=== PATIENT | female | born 1985 | race Asian ===

== ENCOUNTER 2021-12-18 10:46 | Emergency (ER) | payer SELFPAY ==
[2021-12-18 11:04] VITALS: BP 140/81; PULSE 107; RESP 16; TEMP 36.6; O2SAT 99
--- NOTE | 2021-12-18 11:27 | ED.MALEGU ---
HPI - Male Genitourinary General Chief complaint: Urogenital-Male Stated complaint: STD Exposure Time Seen by Provider: 12/18/21 11:10 Source: patient, RN notes reviewed and old records reviewed Mode of arrival: ambulatory Limitations: no limitations History of Present Illness HPI Narrative: 36-year-old male who presents to [facility] care with complaints of 2-day history of white penile drainage and some burning with urination. Patient denies any testicular pain, no fever, chills or sweats, denies any pain in his back. Patient reports that he has had previous STD diagnosis with similar symptoms. MD Complaint: penile discharge and possible STD exposure Onset (ago): day(s) (2) Associated symptoms: Reports discharge and dysuria Related Data Home Medications Medication Instructions Recorded Confirmed albuterol sulfate 90 mcg/actuation 2 puff inhalation QID PRN sob 12/18/21 12/18/21 aerosol inhaler Allergies Allergy/AdvReac Type Severity Reaction Status Date / Time No Known Allergies Allergy Verified 12/18/21 11:18 Review of Systems Review of Systems: CONSTITUTIONAL: Denies fever, chills, or sweats. CARDIOVASCULAR: Denies chest pain, palpitations, or edema. RESPIRATORY: Denies cough or dyspnea. GASTROINTESTINAL: Denies abdominal pain, nausea, vomiting, or diarrhea. GENITOURINARY: Reports dysuria, no frequency, urgency. Denies flank pain or hematuria.reports white thick penile discharge SKIN: Denies rash or itching. MUSCULOSKELETAL: Denies back pain or myalgia. Denies CVA tenderness NEUROLOGIC: Denies headache All systems reviewed & are unremarkable except as noted in HPI and below PMFSH Past Medical History Medical History (Updated 12/19/21 @ 08:37 by Awilda Vieira NP) STD (sexually transmitted disease) Social History Social History (Updated 12/19/21 @ 08:38 by Awilda Vieira NP) Smoking status: Never smoker Alcohol intake: unknown Substance use: unknown Gender identity (if verbalized by the patient): Male Comments At time of signature, agree with nursing past medical, surgical, social and family history. There is no relevant family history pertinent to the presenting complaint Exam Narrative: GENERAL: Well-appearing, well-nourished, and in no acute distress. HEAD: Normocephalic, atraumatic. NECK: Supple. CHEST: Clear to auscultation. No respiratory distress. SaO2 99% on room air HEART: Regular rate and rhythm. No murmur heard. Normal peripheral pulses. ABDOMEN: Soft, nontender, nondistended, normal active bowel sounds. No CVA tenderness, no testicular pain, positive for white penile discharge. EXTREMITIES: Normal range of motion. No edema. SKIN: Warm, dry, no rash. NEURO: No focal deficits. Alert and oriented x3. Course Course Emergency Course: Patient is aware of diagnosis, understands and agrees to treatment plan.? Anticipatory guidance given.? Patient agrees to follow-up as directed and is aware of reasons to seek care at the emergency department. Portions of this record may have been created with voice recognition software Level of Care: Express Care Visit Vital Signs Vital signs: Vital Signs Temperature 36.6 C 12/18/21 11:04 Pulse Rate 107 H 12/18/21 11:04 Respiratory Rate 16 12/18/21 11:04 Blood Pressure 140/81 12/18/21 11:04 Pulse Oximetry 99 12/18/21 11:04 Oxygen Delivery Room Air 12/18/21 11:04 Temperature 36.6 C 12/18/21 11:04 Pulse Rate 107 H 12/18/21 11:04 Respiratory Rate 16 12/18/21 11:04 Blood Pressure 140/81 12/18/21 11:04 Pulse Oximetry 99 12/18/21 11:04 Oxygen Delivery Room Air 12/18/21 11:04 MDM - Male Genitourinary MDM Narrative Medical decision making narrative: We will treat empirically for GC and chlamydia and trichomonas with ceftriaxone IM doxycycline and Flagyl orally, GC culture sent abstinence and safe sex precautions were provided and the patient demonstrated understanding Patient received Rocephin 5
[2021-12-18] MEDS: cefTRIAXone 500 MG, LIDOCAINE HCL 1% LOCAL INJ 1 ML IM (11:47)
== END 2021-12-18 12:10 | disposition home or self-care (01) ==
PROVIDERS: Emergency Provider Registered Nurse
DX: R36.9 Urethral discharge, unspecified (principal)
CPT/HCPCS: 87491; 87591; 87661; 96372; 99214; G0463; J0696

== ENCOUNTER 2024-10-11 18:55 | Emergency (ER) | payer BC, SELFPAY ==
--- OUTSIDE RECORDS SUMMARY | 2024-10-11 18:57 | XMS_ITS | Clinical Summary ---
Author Organization [facility] Address [address] [facility] [place] [address] Phone Care Team Providers Care Esthetician/Skin Therapist Name Role Phone Henrique Renae APRN, SOFTWARE ENGINEERING MANAGER Unavailable Ra Bailey MD Primary Care Provider [phone] Allergies No known active allergies Medications No known medications Social History Tobacco Use Types Packs/Day Years Used Date Smoking Tobacco: Never Smokeless Tobacco: Never Alcohol Use Standard Drinks/Week Comments Not Currently 0 (1 standard drink = 0.6 oz pur e alcohol) Occasionally Sex and Gender Information Value Date Recorded Sex Assigned at Not on file Legal Sex Male 11:46 PM CDT Gender Identity Not on file Sexual Orientation Not on file Last Filed Vital Signs Vital Sign Reading Time Taken Comments Blood Pressure 136/65 2022 1:04 PM PRINCIPAL PROGRAMMER Pulse 70 2022 1:04 PM PRINCIPAL PROGRAMMER Temperature 36.8 C (98.2 F) 2022 1:04 PM PRINCIPAL PROGRAMMER Respiratory Rate 16 2022 3:10 PM PRINCIPAL PROGRAMMER Oxygen Saturation 97% 2022 1:04 PM PRINCIPAL PROGRAMMER Inhaled Oxygen Concentration - - Weight 78.9 kg (174 lb) 2022 1:04 PM PRINCIPAL PROGRAMMER Height 172.7 cm (5' 8) 2022 1:04 PM PRINCIPAL PROGRAMMER Body Mass Index 26.46 2022 1:04 PM PRINCIPAL PROGRAMMER Plan of Treatment Health Maintenance Due Date Last Done Comments Hepatitis C Virus (HCV) Screening 1984 TdaP Immunization 1984 Human Papillomavirus (HPV) Immunization (1 - Male 3-dose series) 05/22/1999 Hepatitis B Immunization (1 of 3 - 19+ 3-dose series) 05/22/2003 SARS-COV-2 Immunization (3 - 2023- season) 2023 05/12/2021, 04/21/2021 Influenza Immunization (#1) 2024 Respiratory Syncytial Virus (RSV) Immunization (Adult) (1 - 1-dose 75+ series) 05/22/2059 Meningococcal Immunization (ACWY) Aged Out No longer eligible b ased on patient's age to complete this topic Pneumococcal Immunization Combined Aged Out No longer eligible b ased on patient's age to complete this topic Rotavirus Immunization Aged Out No lo nger eligible based on patient's age to complete this topic Insurance Care Teams Esthetician/Skin Therapist Relationship Specialty Start Date End Date Ra Bailey MD [address] [place] [address] PCP - General Primary Care 01/13/24 Henrique Renae, EQUIPMENT SERVICES ASSOCIATE, SOFTWARE ENGINEERING MANAGER [address] [place] [address] Nurse Practitioner Advanced Practice Nurse 01/13/24
--- OUTSIDE RECORDS SUMMARY | 2024-10-11 18:57 | XMS_ITS | Clinical Summary ---
Author Organization [address] Address [address] [place] [id number] Care Team Providers Care Civil Structural Engineer Name Role Phone Ra Bailey MD Primary Care Provider + Elijah Hall MD Unavailable [phone] Allergies No known active allergies Medications albuterol HFA (PROVENTIL HFA,VENTOLIN HFA,PROAIR HFA) 90 mcg/actuation inhalerIndicatio ns:Asthma, unspecified asthma severity, unspecified whether complicated, unspecified whether persistent Inhale 2 puffs every 6 (six) hours as needed for wheezing for up to 7 days 1 each 3 Active Active Problems No known active problems Medical History Medical History Date Comments Asthma Family History Medical History Relation Name Comments Lung cancer Father Cancer, lung; Relation Name Status Comments Father Social History Tobacco Use Types Packs/Day Years Used Date Smoking Tobacco: Never Tobacco Cessation:Counseling Given: Not Answered Sex and Gender Information Value Date Recorded Sex Assigned at Not on file Legal Sex Male 3:43 AM SODIUM CHLORITE OPERATOR Gender Identity Not on file Sexual Orientation Not on file Obstetrics History Last Filed Vital Signs Vital Sign Reading Time Taken Comments Blood Pressure 122/68 01/30/2023 6:57 PM SODIUM CHLORITE OPERATOR Pulse 84 01/30/2023 6:57 PM SODIUM CHLORITE OPERATOR Temperature 36.8 C (98.3 F) 01/30/2023 6:57 PM SODIUM CHLORITE OPERATOR Respiratory Rate 16 01/30/2023 6:57 PM SODIUM CHLORITE OPERATOR Oxygen Saturation 98% 01/30/2023 6:57 PM SODIUM CHLORITE OPERATOR Inhaled Oxygen Concentration - - Weight 73.5 kg (162 lb) 01/30/2023 6:57 PM SODIUM CHLORITE OPERATOR Height 172.7 cm (5' 8) 01/30/2023 6:57 PM SODIUM CHLORITE OPERATOR Body Mass Index 24.63 01/30/2023 6:57 PM SODIUM CHLORITE OPERATOR Plan of Treatment Health Maintenance Due Date Last Done Comments Depression Screening 1984 Hepatitis C Screening 1984 Prostate Cancer Screening-PSA 1984 DTaP/Tdap/Td Vaccine (1 - Tdap) 05/22/1995 Varicella Vaccines (1 of 2 - 13+ 2-dose series) 1997 Hepatitis B Screening 2002 Regular Well Visit/Exam 18-64 2002 HPV Vaccines (1 - 3-dose SCD M series) 05/22/2011 Covid-19 Vaccine (3 - 2023-2 5 season) 2023 05/12/2021, 04/21/2021 Influenza Vaccine (#1) 2024 Pneumococcal vaccine <65 Aged Out No longer eligible based on patient's age to complete this topic Insurance [id number] [place] [address] Care Teams Civil Structural Engineer Relationship Specialty Start Date End Date Ra Bailey MD [address] [facility] [place] [address] PCP - General Internal Medicine 01/30/23 Elijah Hall MD [address] [place] [address] [facility] [address] [place] [address] 01/30/23
--- OUTSIDE RECORDS SUMMARY | 2024-10-11 18:57 | XMS_ITS | Referral Summary ---
Author Organization [address] Address [address] [place] [id number] Care Team Providers Care Vinegar Maker Name Role Phone Ra Bailey MD Primary Care Provider + Elijah Hall MD Unavailable [phone] Allergies No known active allergies Medications albuterol HFA (PROVENTIL HFA,VENTOLIN HFA,PROAIR HFA) 90 mcg/actuation inhalerIndicatio ns:Asthma, unspecified asthma severity, unspecified whether complicated, unspecified whether persistent Inhale 2 puffs every 6 (six) hours as needed for wheezing for up to 7 days 1 each 3 Active Active Problems No known active problems Social History Tobacco Use Types Packs/Day Years Used Date Smoking Tobacco: Never Tobacco Cessation:Counseling Given: Not Answered Sex and Gender Information Value Date Recorded Sex Assigned at Not on file Legal Sex Male 3:43 AM SOFTWARE ENGINEER KERNEL Gender Identity Not on file Sexual Orientation Not on file Last Filed Vital Signs Vital Sign Reading Time Taken Comments Blood Pressure 122/68 01/30/2023 6:57 PM SOFTWARE ENGINEER KERNEL Pulse 84 01/30/2023 6:57 PM SOFTWARE ENGINEER KERNEL Temperature 36.8 C (98.3 F) 01/30/2023 6:57 PM SOFTWARE ENGINEER KERNEL Respiratory Rate 16 01/30/2023 6:57 PM SOFTWARE ENGINEER KERNEL Oxygen Saturation 98% 01/30/2023 6:57 PM SOFTWARE ENGINEER KERNEL Inhaled Oxygen Concentration - - Weight 73.5 kg (162 lb) 01/30/2023 6:57 PM SOFTWARE ENGINEER KERNEL Height 172.7 cm (5' 8) 01/30/2023 6:57 PM SOFTWARE ENGINEER KERNEL Body Mass Index 24.63 01/30/2023 6:57 PM SOFTWARE ENGINEER KERNEL Plan of Treatment Not on file Insurance [facility] Care Teams Vinegar Maker Relationship Specialty Start Date End Date Ra Bailey MD [address] [place] [address] PCP - General Internal Medicine 01/30/23 Elijah Hall MD [address] [place] [address] [address] [place] [address] 01/30/23
[2024-10-11 19:09] VITALS: BP 159/64; PULSE 85; RESP 16; TEMP 36.9; O2SAT 98
--- NOTE | 2024-10-11 19:12 | ED_ITS ---
HPI - Dental/Oral General Chief complaint: Dental/Oral Stated complaint: Right Jaw Pain Time Seen by Provider: 10/11/24 19:12 Source: patient Mode of arrival: ambulatory Limitations: no limitations History of Present Illness HPI Narrative: 39 yo M presents with pain to R jaw/lower dental. Pt has impacted wisdom tooth. does not have dentist. Afebrile. No significant swelling noted. Pain for 2 days. All systems reviewed and negative except as noted above. Related Data Home Medications ?Medication ?Instructions ?Recorded ?Confirmed ?Last Taken ?Type tiotropium bromide inhalation 10/11/24 Unknown History Allergies Allergy/AdvReac Type Severity Reaction Status Date / Time No Known Allergies Allergy Verified 10/11/24 19:09 [facility] Past Medical History Medical History (Updated 10/11/24 @ 19:20 by Jamila Martinez NP) STD (sexually transmitted disease) Social History Social History (Updated 12/19/21 @ 08:38 by Awilda Vieira NP) Smoking status: Never smoker Alcohol intake: unknown Substance use: unknown Gender identity (if verbalized by the patient): Male Comments At time of signature, agree with nursing past medical, surgical, social and family history. There is no relevant family history pertinent to the presenting complaint. Exam Narrative: GENERAL: This is a well-nourished, well-developed patient, in no apparent distress. HEAD: normocephalic, atraumatic. EYES: PERRL. Sclera clear/white. Vision is grossly intact. EARS: External ears normal NOSE: External nose normal MOUTH: tooth #32 sideways pushing against tooth #31, mild surrounding erythema and swelling. no fluctuance concerning for abscess. NECK: Neck supple, non-tender without lymphadenopathy, masses or thyromegaly. CARDIOVASCULAR: Regular rate and rhythm without murmurs, gallops, or rubs. RESPIRATORY: Clear to auscultation. Breath sounds equal bilaterally. No wheezes, rales, or rhonchi. SKIN: warm, Dry, intact with no suspicious lesions or rash, good texture and turgor. NEURO: awake, alert, and oriented to person, place and time. There were no obvious focal neurologic abnormalities. EXTREMITIES: No joint tenderness, effusion, or edema noted. Course Course Level of Care: Express Care Visit Vital Signs Vital signs: Vital Signs Temperature 36.9 C 10/11/24 19:09 Pulse Rate 85 10/11/24 19:09 Respiratory Rate 16 10/11/24 19:09 Blood Pressure 159/64 H 10/11/24 19:09 Pulse Oximetry 98 10/11/24 19:09 Oxygen Delivery Room Air 10/11/24 19:09 Temperature 36.9 C 10/11/24 19:09 Pulse Rate 85 10/11/24 19:09 Respiratory Rate 16 10/11/24 19:09 Blood Pressure 159/64 H 10/11/24 19:09 Pulse Oximetry 98 10/11/24 19:09 Oxygen Delivery Room Air 10/11/24 19:09 reviewed MDM - Dental/Oral MDM Narrative Medical decision making narrative: will treat with abx and recommend follow up with dentist. pt is well appearing nontoxic. Differential Diagnosis Differential diagnosis: Likely dental caries, toothache and dental abscess Discharge Plan Discharge Clinical Impression: Toothache Patient Disposition: Home Condition: Stable Instructions: Antibiotic Form, Toothache (ED) Patient Language: Sami Prescriptions: New ibuprofen 800 mg tablet 800 mg PO TID PRN (Reason: pain) Qty: 30 0RF amoxicillin 875 mg tablet 875 mg PO Q12H 10 Days Qty: 20 0RF No Action tiotropium bromide [Spiriva Respimat] inhalation Follow-up/Referrals: Leo,Navneet Oseguera MD [Primary Care Provider] - Time of Disposition: 19:20
== END 2024-10-11 19:24 | disposition home or self-care (01) ==
PROVIDERS: Emergency Provider Nurse Practitioner Family; PCP Internal Medicine
DX: K08.89 Other specified disorders of teeth and supporting structures (principal)
CPT/HCPCS: 99213; G0463